=== PATIENT | female | born 1970 | race Caucasian/White ===

== ENCOUNTER 2017-05-07 10:27 | Emergency (ER) | payer MEDICAID ==
[2017-05-07 11:01] VITALS: BP 136/64; BMI 33.6
--- NOTE | 2017-05-07 11:35 | DR.GENAD ---
HPI - PCP Primary Care Physician: JANETH BELTRE - Complaint/Symptoms Chief Complaint Doctors Comments: Patient presents with complaint of possible influenza. Umair reports that patient just approved for disability and now she can get seen. She saw her feed handler three to four weeks ago, and has had carotid artery surgery left side, daughter is concerned about swelling of the area.. Patient also that heart surgery two years ago and followed by local feed handler in [facility]. Patient sleeps on one pillow and denies dyspnea of chest pain. .She admits to having a carotid artery surgery on the left side and has noticed some swelling w/o tenderness or redness. Chief Complaint:: RETAINING WATER, SWELLING TO NECK SINCE FOR LAST 2 WEEKS. POSSIBLE FLU Self Treatment fo Chief Complaint: HAS SEEN PMD AND TAKING WATER PILLS - Source History Provided: Patient, Family Member - Mode of Arrival Mode of Arrival: In Arms - Timing Onset of Chief Complaint: 04/23/17 PMH - PMH Past Medical History: Yes Past Medical History: Anxiety, CHF, Coronary Artery Disease, CVA, Depression, Diabetes, Dyslipidemia Past Surgical History: Yes Surgical History: , CABG/Valve Surgery, Carotid Endarterectomy, Cholecystectomy, Hysterectomy - Family History History of Family Medical Conditions: Yes Family Medical History: Diabetes Mellitus, Cancer, [place], Coronary Artery Disease, Heart Failure, Hypertension - Social History Type of Tobacco Use: Cigarettes Alcohol Use: None Do you use any recreational Drugs:: No Lives With: Family Lives Where: Home - infectious screening In the last 2 months have you had wt loss of >10#?: NO Have you had fever, night sweats or hemotysis?: No Have you traveled outside the country in the last 6 months?: No Isolation: Standard ROS - Review of Systems Eyes: No Symptoms Reported ENTM: No Symptoms Reported Respiratoy: No Symptoms Reported Cardiovascular: No Symptoms Reported Gastrointestinal/Abdominal: No Symptoms Reported Genitourinary: No Symptoms Reported Neurological: No Symptoms Reported Musculoskeletal: No Symptoms Reported Integumentary: No Symptoms Reported Hematologic/Lymphatic: No Symptoms Reported Endocrine: No Symptoms Reported Psychiatric: No Symptoms Reported PE - Vital Signs Vitals: Temperature 98.7 F Pulse Rate 71 Respiratory Rate 16 Blood Pressure 136/64 O2 Sat by Pulse Oximetry 95 - General Limitations: No Limitations General Appearance: Alert, In No Apparent Distress - Head Head Exam: Normal Inspection, Atraumatic - Eyes Eye exam: Normal Appearance, PERRL, EOMI - ENT ENT Exam: Normal Exam, Normal Oropharynx External Ear Exam: Normal External Inspection TM/Canal Exam: Bilateral Normal Nose Exam: Normal Nose Exam Mouth Exam: Normal Inspection Throat Exam: Normal Inspection - Neck Neck Exam: Normal Inspection - Chest Chest Inspection: Normal Inspection, Symmetric Chest Wall Rise - Respiratory Respiratory Exam: Normal Lung Sounds Bilat, Accessory Muscle Use Respiratory Exam: Bilateral Clear to Auscultation - Cardiovascular Cardiovascular Exam: Regular Rate, Normal Rhythm - Abdominal Exam Abdominal Exam: Normal Inspection, Normal Bowel Sounds Abdominal Tenderness: negative: RUQ, RLQ, LUQ, LLQ, Epigastrium, Suprapubic, Diffuse, Mild, Moderate, Severe, Other - Extremities Extremities Exam: Normal Inspection, Full ROM - Back Back Exam: Normal Inspection, Full ROM - Neurologic Neurological Exam: Alert, Oriented X3, CN II-XII Intact - Psychiatric Psychiatric Exam: Normal Affect, Normal Mood - Skin Skin Exam: Warm, Dry, Intact Course - Treatment Treatment: Discussed lab results, patient verbalized understanding - Reevaluation 1st: Unchanged - Education/Counseling Educated On: Treatment, Diagnosis, Prognosis ROR - Labs Reviewed Laboratory Results Reviewed?: Yes (Negative influenza) Result Diagrams: 05/07/17 11:52 05/07/17 11:52 Laboratory: WBC 6.0 X10^3/uL (3.6-10.0) 05/07/17 11:52 RBC 4.40 X10^6/uL (3.5-5.4) 05/07/17 11:52 Hgb 12.5 g/dL (12.0-16.0) 05/07/17 11:52 Hct 37.0 % (36.0-47.0) 05/07/17 11:52 MCV 84.0 fL (80.0-100.0) 05/07/17 11:52 MCH 28.5 pg (27.0-34.0) 05/07/17 11:52 MCHC 33.9 g/dL (33.0-35.0) 05/07/17 11:52 RDW 14.5 % (11.6-16.5) 05/07/17 11:52 Plt Count 295 X10^3/uL (150.0-450.0) 05/07/17 11:52 MPV 9.5 fL (7.4-11.0) 05/07/17 11:52 Neut % 52.3 % (42.0-75.0) 05/07/17 11:52 Lymph % 36.0 % (21.0-51.0) 05/07/17 11:52 [place] % 10.0 % (0.0-13.0) 05/07/17 11:52 Eos % 0.7 % (0.9-2.9) L 05/07/17 11:52 Baso % 1.0 % (0.2-1.0) 05/07/17 11:52 Neut # 3.1 x10^3/uL (2.2-4.8) 05/07/17 11:52 Lymph # 2.2 X10^3/uL (1.3-2.9) 05/07/17 11:52 [place] # 0.6 x10^3/uL (0.3-0.8) 05/07/17 11:52 Eos # 0.0 x10^3/uL (0.0-0.2) 05/07/17 11:52 Baso # 0.1 X10^3/uL (0.0-0.1) 05/07/17 11:52 Absolute Nucleated RBC 0.0 /100WBC 05/07/17 11:52 INR Target Range - 05/07/17 11:52 INR 0.90 (0.8-1.3) 05/07/17 11:52 PTT 35.1 SECONDS (22.9-36.5) 05/07/17 11:52 PTT Comment - 05/07/17 11:52 Sodium 133 mmol/L (136-145) L 05/07/17 11:52 Corrected Sodium TNP 05/07/17 11:52 Potassium 4.2 mmol/L (3.5-5.1) 05/07/17 11:52 Chloride 98 mmol/L (98-107) 05/07/17 11:52 Carbon Dioxide 27.1 mmol/L (21-32) 05/07/17 11:52 BUN 8 mg/dL (7-18) 05/07/17 11:52 Creatinine 0.82 mg/dL (0.55-1.02) 05/07/17 11:52 Est GFR (MDRD) Af Amer > 60 (>60) 05/07/17 11:52 Est GFR (MDRD) Non-Af > 60 (>60) 05/07/17 11:52 Glucose 91 mg/dL (65-99) 05/07/17 11:52 Calcium 8.8 mg/dL (8.5-10.1) 05/07/17 11:52 Corrected Calcium TNP 05/07/17 11:52 Total Bilirubin 0.10 mg/dL (0.2-1.0) L 05/07/17 11:52 AST 23 Units/L (15-37) 05/07/17 11:52 ALT 29 Units/L (12-78) 05/07/17 11:52 Alkaline Phosphatase 129 Units/L (46-116) H 05/07/17 11:52 Total Protein 7.5 g/dL (6.4-8.2) 05/07/17 11:52 Albumin 3.6 g/dL (3.4-5.0) 05/07/17 11:52 Globulin 3.9 g/dL (2.5-4.5) 05/07/17 11:52 Albumin/Globulin Ratio 0.9 Ratio (1.1-2.1) L 05/07/17 11:52 Specimen Type Clean catch urine 05/07/17 11:58 Urine Color Pale yellow (YELLOW) 05/07/17 11:58 Urine Appearance Clear (CLEAR) 05/07/17 11:58 Urine pH 5.0 (5.0 - 8.0) 05/07/17 11:58 Ur Specific [place] 1.005 (1.000-1.030) 05/07/17 11:58 Urine Protein Negative (NEGATIVE) 05/07/17 11:58 Urine Glucose (UA) Negative (NEGATIVE) 05/07/17 11:58 Urine Ketones Negative (NEGATIVE) 05/07/17 11:58 Urine Occult Blood Negative (NEGATIVE) 05/07/17 11:58 Urine Nitrite Negative (NEGATIVE) 05/07/17 11:58 Urine Bilirubin Negative (NEGATIVE) 05/07/17 11:58 Urine Urobilinogen Normal (NORMAL) 05/07/17 11:58 Ur Leukocyte Esterase Negative (NEGATIVE) 05/07/17 11:58 Urine RBC None seen /HPF (NEGATIVE) 05/07/17 11:58 Urine WBC None seen /HPF (NEGATIVE) 05/07/17 11:58 Ur Squamous Epith Cells Rare /HPF (NEGATIVE) 05/07/17 11:58 Urine Bacteria Negative /HPF (NEGATIVE) 05/07/17 11:58 Ur Culture Indicated? No/not indicated 05/07/17 11:58 Influenza Type A (PCR) Negative (NEGATIVE) 05/07/17 11:37 Influenza Type B (PCR) Negative (NEGATIVE) 05/07/17 11:37 - XRAY XRAY Interpreted by: Radiologist (Chest; No acurte cardiopulmonary disease) - Diagnosis Discharge Problem: Fluid retention in legs, Pitting edema - Discharge Plan Condition: Stable - Follow ups/Referrals Follow ups/Referrals: JANETH BELTRE [Primary Care Provider] - 3 days - Instructions
[2017-05-07 12:03] LABS: BASOPHILS # (AUTO) 0.1 X10^3/uL (0.0-0.1); EOSINOPHILS % (AUTO) 0.7 % (0.9-2.9); HEMOGLOBIN 12.5 g/dL (12.0-16.0); LYMPHOCYTES # (AUTO) 2.2 X10^3/uL (1.3-2.9); MEAN CORPUSCULAR HEMOGLOBIN 28.5 pg (27.0-34.0); MEAN CORPUSCULAR HGB CONC 33.9 g/dL (33.0-35.0); MEAN PLATELET VOLUME 9.5 fL (7.4-11.0); MONOCYTES # (AUTO) 0.6 x10^3/uL (0.3-0.8); NEUTROPHILS # (AUTO) 3.1 x10^3/uL (2.2-4.8); NEUTROPHILS % (AUTO) 52.3 % (42.0-75.0); PLATELET COUNT 295 X10^3/uL (150.0-450.0); RED CELL DISTRIBUTION WIDTH 14.5 % (11.6-16.5)
--- NOTE | 2017-05-07 12:16 | RAD ---
History: Swelling Study: Portable AP chest Comparison: None Findings: The heart size is normal status post median sternotomy. The lungs are clear. There is no ed ulises or effusion. No significant bony abnormality is demonstrated. Impression: No evidence for active cardiopulmonary disease Reported By:
[2017-05-07 12:17] LABS: BILIRUBIN,URINE NEGATIVE (NEGATIVE); BLOOD/HEMOGLOBIN,URINE NEGATIVE (NEGATIVE); GLUCOSE, URINE NEGATIVE (NEGATIVE); KETONES,URINE NEGATIVE (NEGATIVE); LEUKOCYTE ESTERASE ,URINE NEGATIVE (NEGATIVE); NITRITES,URINE NEGATIVE (NEGATIVE); PROTEIN,URINE NEGATIVE (NEGATIVE); UROBILINOGEN,URINE NORMAL (NORMAL)
[2017-05-07 12:19] LABS: ALANINE AMINOTRANSFERASE 29 Units/L (12-78); ALBUMIN 3.6 g/dL (3.4-5.0); ALKALINE PHOSPHATASE 129 Units/L (46-116); ASPARTATE AMINO TRANSFERASE 23 Units/L (15-37); BLOOD UREA NITROGEN 8 mg/dL (7-18); CALCIUM 8.8 mg/dL (8.5-10.1); CARBON DIOXIDE 27.1 mmol/L (21-32); CHLORIDE 98 mmol/L (98-107); CREATININE 0.82 mg/dL (0.55-1.02); SODIUM 133 mmol/L (136-145); TOTAL PROTEIN 7.5 g/dL (6.4-8.2); eGFR BLACK RACES > 60 (>60); eGFR NON BLACK RACES > 60 (>60)
[2017-05-07 12:25] LABS: APPEARANCE,URINE CLEAR (CLEAR); BACTERIA,URINE NEGATIVE /HPF (NEGATIVE); COLOR,URINE PALE YELLOW (YELLOW); RBC,URINE NONE SEEN /HPF (NEGATIVE); SQUAMOUS EPITHELIAL CELL,UR RARE /HPF (NEGATIVE)
== END 2017-05-07 13:17 | disposition home or self-care (01) ==
LOC: ER 11:07
DX: R60.0 Localized edema (principal)
CPT/HCPCS: 36415; 71045; 80053; 81001; 85025; 85610; 85730; 87502; 99282